=== PATIENT | male | born 1945 | race Caucasian/White ===

== ENCOUNTER 2019-05-03 12:45 | Emergency (ER) | payer MEDICARE, BC ==
[2019-05-03 13:34] VITALS: BP 162/72
--- NOTE | 2019-05-03 14:19 | EDM.PDOC ---
ED HPI GENERAL MEDICAL PROBLEM - General Chief Complaint: Bite:Animal, Insect Stated Complaint: TICK BITE Time Seen by Provider: 05/03/19 13:33 Source of Information: Reports: Patient History Limitations: Reports: No Limitations - History of Present Illness INITIAL COMMENTS - FREE TEXT/NARRATIVE: 73 yo may presents with fatigue, body aches and chills after a know tick bite. He is unsure how long the tick was attached but thinks it is for sure longer then 24 hours. He has had Lyme before and feels very similar - Related Data Allergies Allergy/AdvReac Type Severity Reaction Status Date / Time No Known Allergies Allergy Verified 05/03/19 13:53 Home Meds: Home Meds Calcium Carbonate/Vitamin D3 [Calcium 600 + Vit D 200] 1 cap PO DAILY 11/02/15 [ History] Levothyroxine [Synthroid] 50 mcg PO DAILY 11/02/15 [History] Magnesium Amino Acid Chelate [Magnesium] 100 mg PO DAILY 11/02/15 [History] Tamsulosin [Flomax] 1 cap PO DAILY 11/02/15 [History] Cyclobenzaprine HCl 05/03/19 [History] Doxazosin Mesylate [Cardura] 05/03/19 [History] Past Medical History Gastrointestinal History: Reports: None Genitourinary History: Reports: BPH Musculoskeletal History: Reports: Arthritis Endocrine/Metabolic History: Reports: Hypothyroidism - Past Surgical History GI Surgical History: Reports: Colonoscopy Musculoskeletal Surgical History: Reports: Other (See Below) Social & Family History - Tobacco Use Smoking Status *Q: Never Smoker ED ROS GENERAL - Review of Systems Review Of Systems: See Below Constitutional: Reports: Fever, Chills, Malaise, Fatigue HEENT: Denies: Rhinitis, Sinus Problem Respiratory: Denies: Shortness of Breath, Wheezing Cardiovascular: Denies: Chest Pain, Lightheadedness GI/Abdominal: Denies: Abdominal Pain Skin: Reports: Rash ED EXAM, ANIMAL BITE - Physical Exam Exam: See Below Exam Limited By: No Limitations General Appearance: Alert, WD/WN, No Apparent Distress Ears: Normal External Exam, Normal Canal, Hearing Grossly Normal Nose: Normal Inspection, Normal Mucosa, No Blood Throat/Mouth: Normal Inspection, Normal Lips, Normal Teeth, Normal Gums, Normal Oropharynx, Normal Voice, No Airway Compromise Head: Atraumatic, Normocephalic Neck: Supple, Non-Tender, Full Range of Motion. No: Lymphadenopathy (R), Lymphadenopathy (L) Respiratory/Chest: No Respiratory Distress, Lungs Clear, Normal Breath Sounds, No Accessory Muscle Use, Chest Non-Tender. No: Crackles, Rhonchi, Wheezing Cardiovascular: Regular Rate, Rhythm, No Murmur GI/Abdominal: Soft, Non-Tender Back Exam: Normal Inspection, Full Range of Motion. No: CVA Tenderness (R), CVA Tenderness (L) Neurological: Alert, Oriented Psychiatric: Normal Affect, Normal Mood Skin Exam: Rash (target lession upper back ) Course - Vital Signs Last Recorded V/S: Last Vital Signs Temp 34.9 C L 05/03/19 14:02 Pulse 67 05/03/19 14:02 Resp 16 05/03/19 14:02 BP 162/72 H 05/03/19 14:02 Pulse Ox 96 05/03/19 14:02 - Orders/Labs/Meds Orders: Active Orders 24 hr Category Date Time Status BABESIA MICROTI ANTIBODY PANEL Urgent Lab 05/03/19 14:41 Received COMPREHENSIVE METABOLIC PN,CMP [CHEM] Stat Lab 05/03/19 14:41 Received HUMAN GRANULOCYTIC ERICKA-HGE Urgent Lab 05/03/19 14:41 Received LYME (B. BURGDORFERI) PCR Urgent Lab 05/03/19 14:41 Received Labs: Laboratory Tests 05/03/19 Range/Units 14:41 WBC 6.3 (4.5-11.0) K/uL RBC 4.70 (4.30-5.90) M/uL Hgb 14.4 (12.0-15.0) g/dL Hct 43.4 (40.0-54.0) % MCV 92 (80-98) fL MCH 31 (27-31) pg MCHC 33 (32-36) % Plt Count 179 (150-400) K/uL Neut % (Auto) 60 (36-66) % Lymph % (Auto) 23 L (24-44) % Carroll % (Auto) 15 H (2-6) % Eos % (Auto) 2 (2-4) % Baso % (Auto) 1 (0-1) % Departure - Departure Time of Disposition: 15:03 Disposition: Home, Self-Care 01 Condition: Good Clinical Impression: At high risk for tick borne illness Tick bite of back Qualifiers: Encounter type: initial encounter Qualified Code(s): S30.860A - Insect bite ( nonvenomous) of lower back and pelvis, initial encounter; W57.XXXA - Bitten or stung by nonvenomous insect and other nonvenomous arthropods, initial encounter - Discharge Information *PRESCRIPTION DRUG MONITORING PROGRAM REVIEWED*: Not Applicable *COPY OF PRESCRIPTION DRUG MONITORING REPORT IN PATIENT MARY: Not Applicable Instructions: Tick Bite Information, Adult, Cyet-by-Bwpm Referrals: Yonatan Juárez MD [Primary Care Provider] - Forms: ED Department Discharge Additional Instructions: doxycycline 100 mg twice daily for 14 days I collected blood for tick panel this will be resulted mid next week increase fluid intake with goal of 1.5 liters per day Ibuprofen 400-600 mg every 6 hours or tylenol 1000 mg every 6 hours for body aches and fever - My Orders Last 24 Hours: My Active Orders 05/03/19 14:41 BABESIA MICROTI ANTIBODY PANEL Urgent COMPREHENSIVE METABOLIC PN,CMP [CHEM] Stat HUMAN GRANULOCYTIC ERICKA-HGE Urgent LYME (B. BURGDORFERI) PCR Urgent - Assessment/Plan Last 24 Hours: My Active Orders 05/03/19 14:41 BABESIA MICROTI ANTIBODY PANEL Urgent COMPREHENSIVE METABOLIC PN,CMP [CHEM] Stat HUMAN GRANULOCYTIC ERICKA-HGE Urgent LYME (B. BURGDORFERI) PCR Urgent
[2019-05-07 16:08] LABS: BABESIA MICROTI IGG <1:10 (Neg:<1:10); BABESIA MICROTI IGM <1:10 (Neg:<1:10)
== END 2019-05-03 15:59 | disposition home or self-care (01) ==
LOC: JP.ED 12:45
DX: S30.860A Insect bite (nonvenomous) of lower back and pelvis, initial encounter (principal); W57.XXXA Bitten or stung by nonvenomous insect and other nonvenomous arthropods, initial encounter; Z79.899 Other long term (current) drug therapy
CPT/HCPCS: 36415; 80053; 85025; 86666; 86753; 87476; 99283

== ENCOUNTER 2020-08-22 06:45 | Emergency (ER) | payer MEDICARE, BC ==
--- NOTE | 2020-08-22 07:00 | EDM.PDOC ---
ED HPI GENERAL MEDICAL PROBLEM - General Chief Complaint: Respiratory Problem Stated Complaint: DIFFICULTY BREATHING / SOB Time Seen by Provider: 08/22/20 07:00 Source of Information: Reports: Patient, Old Records, RN History Limitations: Reports: No Limitations - History of Present Illness INITIAL COMMENTS - FREE TEXT/NARRATIVE: 75 yo male presents with RODRIGUEZ and mild chest tightness since about 0300h today. No hx of the same. No cough or fever or calf pain. No personal hx of CAD, but does have a FHx. Has smoked in the remote past only. Took aspirin 243 mg before coming in today. Has no SOB at rest now. Complains of fatigue for about 6 mos. Has not shared this with his primary Dr. Juárez. Onset: Today, Sudden Onset Date: 08/22/20 Onset Time: 03:00 Duration: Hour(s):, Waxing/Waning Location: Reports: Chest Quality: Reports: Pressure Severity: Mild Improves with: Reports: None Worsens with: Reports: None Context: Reports: Other (See HPI) Associated Symptoms: Reports: Chest Pain, Shortness of Breath. Denies: Cough, Diaphoresis, Fever/Chills, Headaches, Nausea/Vomiting, Rash, Syncope Treatments ADJUNCT LECTURER: Reports: Aspirin chest pressure Pain Score (Numeric/FACES): 5 - Related Data Allergies Allergy/AdvReac Type Severity Reaction Status Date / Time No Known Allergies Allergy Verified 05/03/19 13:53 Home Meds: Home Meds Levothyroxine [Synthroid] 75 mcg PO DAILY 11/02/15 [History] Doxazosin Mesylate [Cardura] 1 tab PO BEDTIME 05/03/19 [History] Apixaban [Eliquis] 10 mg PO Q12H #88 tablet 08/22/20 [Rx] Past Medical History Gastrointestinal History: Reports: None Genitourinary History: Reports: BPH Musculoskeletal History: Reports: Arthritis Endocrine/Metabolic History: Reports: Hypothyroidism - Past Surgical History GI Surgical History: Reports: Colonoscopy Musculoskeletal Surgical History: Reports: Other (See Below) ED ROS GENERAL - Review of Systems Review Of Systems: See Below Constitutional: Reports: No Symptoms HEENT: Reports: No Symptoms Respiratory: Reports: Shortness of Breath. Denies: Wheezing, Pleuritic Chest Pain, Cough, Sputum Cardiovascular: Reports: Chest Pain Endocrine: Reports: No Symptoms GI/Abdominal: Reports: No Symptoms : Reports: No Symptoms Musculoskeletal: Reports: No Symptoms Skin: Reports: No Symptoms Neurological: Reports: No Symptoms Psychiatric: Reports: No Symptoms ED EXAM, GENERAL - Physical Exam Exam: See Below Exam Limited By: No Limitations General Appearance: Alert, WD/WN, No Apparent Distress, Obese Eye Exam: Bilateral Eye: Normal Inspection Ears: Normal External Exam, Normal Canal, Hearing Grossly Normal, Normal TMs Ear Exam: Bilateral Ear: Auricle Normal, Canal Normal, TM normal Nose: Normal Inspection, No Blood Throat/Mouth: Normal Inspection, Normal Lips, Normal Oropharynx, Normal Voice, No Airway Compromise Head: Atraumatic, Normocephalic Neck: Normal Inspection Respiratory/Chest: No Respiratory Distress, Lungs Clear, Normal Breath Sounds, No Accessory Muscle Use Cardiovascular: Regular Rate, Rhythm, No Edema GI/Abdominal: Normal Bowel Sounds, Soft, Non-Tender, No Distention Extremities: Normal Inspection, Normal Range of Motion, Non-Tender, No Pedal Edema. No: Pedal Edema, Curry's Sign, Leg Pain, Limited Range of Motion, Increased Warmth, Redness Neurological: Alert, Oriented, CN II-XII Intact, Normal Cognition, No Motor/Sensory Deficits Psychiatric: Normal Affect, Normal Mood Skin Exam: Warm, Dry, Intact, Normal Color, No Rash EKG INTERPRETATION EKG Date: 08/22/20 Time: 06:45 Rhythm: NSR Rate (Beats/Min): 72 Hobson: LAD-Left Hobson Deviation P-Wave: Present QRS: Normal ST-T: Normal QT: Normal Comparison: NA - No Prior EKG () Course - Vital Signs Text/Narrative:: Dr. Velazquez called @ 1013h Last Recorded V/S: Last Vital Signs Temp 35.8 C L 08/22/20 06:54 Pulse 59 L 08/22/20 09:41 Resp 18 08/22/20 09:41 BP 171/59 H 08/22/20 09:41 Pulse Ox 97 08/22/20 09:41 - Orders/Labs/Meds Orders: Active Orders 24 hr Category Date Time Status Cardiac Monitoring [RC] .As Directed Care 08/22/20 06:56 Active EKG Documentation Completion [RC] ASDIRECTED Care 08/22/20 06:56 Active Chest 2V [CR] Stat Exams 08/22/20 07:12 Taken CORONAVIRUS COVID-19, CECILIO Routine Lab 08/22/20 10:42 Ordered Nitroglycerin [Nitrostat] Med 08/22/20 07:11 Active 0.4 mg SL Q5M PRN Sodium Chloride 0.9% [Normal Saline] 1,000 ml Med 08/22/20 08:00 Active IV ASDIRECTED Sodium Chloride 0.9% [Saline Flush] Med 08/22/20 07:22 Active 10 ml FLUSH ASDIRECTED PRN Saline Lock Insert [OM.PC] Routine Oth 08/22/20 07:22 Ordered EKG 12 Lead [EK] Routine Ther 08/22/20 06:56 Ordered Medication Orders Sodium Chloride (Normal Saline) 1,000 mls @ 1,000 mls/hr IV ASDIRECTED MONI Last Admin: 08/22/20 08:24 Dose: 1,000 mls/hr Documented by: PREILOR Nitroglycerin (Nitrostat) 0.4 mg SL Q5M PRN PRN Reason: Chest Pain Last Admin: 08/22/20 07:32 Dose: 0.4 mg Documented by: Admin: 08/22/20 07:20 Dose: 0.4 mg Documented by: SAVANNAH Sodium Chloride (Saline Flush) 10 ml FLUSH ASDIRECTED PRN PRN Reason: Keep Vein Open Last Admin: 08/22/20 07:31 Dose: 10 ml Documented by: SAVANNAH Labs: Laboratory Tests 08/22/20 08/22/20 08/22/20 Range/Units 07:21 07:21 07:21 WBC 5.4 (4.5-11.0) K/uL RBC 4.53 (4.30-5.90) M/uL Hgb 13.9 (12.0-15.0) g/dL Hct 42.0 (40.0-54.0) % MCV 93 (80-98) fL MCH 31 (27-31) pg MCHC 33 (32-36) % Plt Count 180 (150-400) K/uL D-Dimer, Quantitative 765 H (0.0-400.0) ng/mL Sodium 141 (140-148) mmol/L Potassium 4.5 (3.6-5.2) mmol/L Chloride 107 (100-108) mmol/L Carbon Dioxide 25 (21-32) mmol/L Anion Gap 9.4 (5.0-14.0) mmol/L BUN 16 (7-18) mg/dL Creatinine 1.3 (0.8-1.3) mg/dL Est Cr Clr Drug Dosing 56.34 mL/min Estimated GFR (MDRD) 54 L (>60) Glucose 176 H (74-106) mg/dL Calcium 8.7 (8.5-10.1) mg/dL Troponin I < 0.017 (0.000-0.056) ng/mL TSH, Ultra Sensitive (0.358-3.740) uIU/mL 08/22/20 Range/Units 08:11 WBC (4.5-11.0) K/uL RBC (4.30-5.90) M/uL Hgb (12.0-15.0) g/dL Hct (40.0-54.0) % MCV (80-98) fL MCH (27-31) pg MCHC (32-36) % Plt Count (150-400) K/uL D-Dimer, Quantitative (0.0-400.0) ng/mL Sodium (140-148) mmol/L Potassium (3.6-5.2) mmol/L Chloride (100-108) mmol/L Carbon Dioxide (21-32) mmol/L Anion Gap (5.0-14.0) mmol/L BUN (7-18) mg/dL Creatinine (0.8-1.3) mg/dL Est Cr Clr Drug Dosing mL/min Estimated GFR (MDRD) (>60) Glucose (74-106) mg/dL Calcium (8.5-10.1) mg/dL Troponin I (0.000-0.056) ng/mL TSH, Ultra Sensitive 2.626 (0.358-3.740) uIU/mL Meds: Medications Generic Name Dose Route Start Last Admin Trade Name Freq PRN Reason Stop Dose Admin Sodium Chloride 1,000 mls @ 1,000 mls/hr 08/22/20 08:00 08/22/20 08:24 Normal Saline IV 1,000 mls/hr ASDIRECTED MONI Administration Nitroglycerin 0.4 mg 08/22/20 07:11 08/22/20 07:32 Nitrostat SL 0.4 mg Q5M PRN Administration Chest Pain Sodium Chloride 10 ml 08/22/20 07:22 08/22/20 07:31 Saline Flush FLUSH 10 ml ASDIRECTED PRN Administration Keep Vein Open Discontinued Medications Generic Name Dose Route Start Last Admin Trade Name Sung PRN Reason Stop Dose Admin Acetaminophen 1,000 mg 08/22/20 09:37 08/22/20 09:45 Tylenol Extra Strength PO 08/22/20 09:38 1,000 mg ONETIME ONE Administration Aspirin 81 mg 08/22/20 07:11 08/22/20 07:20 Aspirin PO 08/22/20 07:12 81 mg ONETIME ONE Administration Enoxaparin Sodium 110 mg 08/22/20 10:11 Lovenox SUBCUT 08/22/20 10:12 ONETIME ONE Sodium Chloride 1,000 mls @ 500 mls/hr 08/22/20 08:00 Normal Saline IV ASDIRECTED MONI Sodium Chloride 100 mls @ 4 mls/sec 08/22/20 09:11 08/22/20 09:24 Normal Saline IV 08/22/20 09:12 4 mls/sec ASDIRECTED STA Administration Iopamidol 100 ml 08/22/20 09:11 08/22/20 09:24 Isovue-370 (76%) IV 08/22/20 09:12 100 ml . DIRECTED STA Administration - Radiology Interpretation Free Text/Narrative:: CXR-neg CTA chest-small segmental PE's CT Results Date: 08/22/20 Departure - Departure Time of Disposition: 10:55 Disposition: Home, Self-Care 01 Condition: Fair Clinical Impression: Elevated blood sugar, Elevated d-dimer Pulmonary emboli Qualifiers: Pulmonary embolism type: multiple subsegmental (without acute cor pulmonale) Qualified Code(s): I26.94 - Multiple subsegmental pulmonary emboli without acute cor pulmonale Fatigue Qualifiers: Fatigue type: unspecified Qualified Code(s): R53.83 - Other fatigue - Discharge Information *PRESCRIPTION DRUG MONITORING PROGRAM REVIEWED*: No *COPY OF PRESCRIPTION DRUG MONITORING REPORT IN PATIENT MARY: No Prescriptions: Apixaban [Eliquis] 10 mg PO Q12H #88 tablet Referrals: Yonatan Juárez MD [Primary Care Provider] - Forms: ED Department Discharge Additional Instructions: Take Eliquis as directed. You will need to get additional prescriptions from your primary for more of this as you will need to be on it for a full 6 months. Take acetaminophen as needed for pain relief. I suggest you see your doctor by the end of this week to check on your Covid test results also. Return as needed. Your Eliquis prescription went to [facility]. You should start it by bedtime tonight. Sepsis Event Note (ED) - Focused Exam Vital Signs: Vital Signs Temp Pulse Resp BP BP Pulse Ox 08/22/20 09:41 59 L 18 171/59 H 97 08/22/20 09:00 60 15 139/71 95 08/22/20 08:05 57 L 16 139/71 97 08/22/20 07:35 69 16 136/69 95 08/22/20 07:32 136/69 08/22/20 07:20 156/74 H 08/22/20 06:54 35.8 C L 63 14 160/77 H 96 - My Orders Last 24 Hours: My Active Orders 08/22/20 06:56 Cardiac Monitoring [RC] .As Directed EKG Documentation Completion [RC] ASDIRECTED EKG 12 Lead [EK] Routine 08/22/20 07:11 Nitroglycerin [Nitrostat] 0.4 mg SL Q5M PRN 08/22/20 07:12 Chest 2V [CR] Stat 08/22/20 07:22 Sodium Chloride 0.9% [Saline Flush] 10 ml FLUSH ASDIRECTED PRN Saline Lock Insert [OM.PC] Routine 08/22/20 08:00 Sodium Chloride 0.9% [Normal Saline] 1,000 ml IV ASDIRECTED 08/22/20 10:42 CORONAVIRUS COVID-19, CECILIO Routine - Assessment/Plan Last 24 Hours: My Active Orders 08/22/20 06:56 Cardiac Monitoring [RC] .As Directed EKG Documentation Completion [RC] ASDIRECTED EKG 12 Lead [EK] Routine 08/22/20 07:11 Nitroglycerin [Nitrostat] 0.4 mg SL Q5M PRN 08/22/20 07:12 Chest 2V [CR] Stat 08/22/20 07:22 Sodium Chloride 0.9% [Saline Flush] 10 ml FLUSH ASDIRECTED PRN Saline Lock Insert [OM.PC] Routine 08/22/20 08:00 Sodium Chloride 0.9% [Normal Saline] 1,000 ml IV ASDIRECTED 08/22/20 10:42 CORONAVIRUS COVID-19, CECILIO Routine
[2020-08-22] MEDS ORDERED: Aspirin 81 MG Tab.Chew PO ONE (07:11)
[2020-08-22] MEDS: Nitroglycerin 0.4 MG Tab.SL SL PRN ×2 (07:20→07:32)
[2020-08-22] MEDS ORDERED: Sodium Chloride 0.9% 10 ML Syringe FLUSH PRN (07:22)
[2020-08-22] MEDS ORDERED: Sodium Chloride 0.9% 1,000 ML IV SCH ×2 (08:00)
[2020-08-22] MEDS ORDERED: Sodium Chloride 0.9% 100 ML IV STA (09:11)
[2020-08-22] MEDS ORDERED: Iopamidol 755 Mg/ML 100 ML Bottle IV STA (09:11)
[2020-08-22] MEDS ORDERED: Acetaminophen 500 MG Tab PO ONE (09:37)
[2020-08-22 09:42] VITALS: BP 171/59; PULSE 59
[2020-08-22] MEDS ORDERED: Enoxaparin 120 MG/0.8 ML Syringe SUBCUT ONE (10:11)
--- NOTE | 2020-08-22 10:16 | CRLCT ---
INDICATION: Short of breath and elevated D-dimer. TECHNIQUE: CT scan of the chest PE protocol. 100 cc of nonionic IV contrast was injected. Findings. Pulmonary arteries: Segmental filling defects. Right lower lobe branch image 66. Segmental branches in the left lower lobe image 71. No central large pulmonary filling defects. Heart mediastinum: The RV LV ratios approximately 0.9. There are a few tiny calcified plaques in the coronary arteries. No adenopathy. Lungs and pleura: Small nodule adjacent to a vessel branch in the right lower lobe 7 mm image 59. Minimal areas of linear atelectasis or scar. No effusions. Miscellaneous: Hiatal hernia. The liver has decreased attenuation. This could suggest fatty infiltration. Skeletal: Idiopathic skeletal hyperostosis. IMPRESSION: 1. Small segmental pulmonary emboli. 2. RV LV ratio would upper normal 0.9. 3. Questionable nodule in the right lower lobe consider follow-up in 12 months. 4. Critical results called to Dr. Zuñiga at 10:10 a.m. by telephone. Please note that all CT scans at this facility use dose modulation, iterative reconstruction, and/or weight-based dosing when appropriate to reduce radiation dose to as low as reasonably achievable. Dictated by Jan Crow MD @ Aug 22 2020 10:14AM Signed by Dr. Jan Crow @ Aug 22 2020 10:14AM
--- NOTE | 2020-08-23 09:52 | CR ---
CHEST: 2 view CLINICAL HISTORY:SOB COMPARISON:None FINDINGS: The heart size, pulmonary vascularity and hilar structures are normal. No infiltrate effusion or pneumothorax is seen. There are atherosclerotic changes in the aorta. IMPRESSION: No acute cardiopulmonary process.
== END 2020-08-22 11:21 | disposition home or self-care (01) ==
LOC: JP.ED 06:45
DX: I26.94 Multiple subsegmental thrombotic pulmonary emboli without acute cor pulmonale (principal); R73.9 Hyperglycemia, unspecified; E03.9 Hypothyroidism, unspecified; E66.9 Obesity, unspecified; Z68.31 Body mass index [BMI] 31.0-31.9, adult; Z79.899 Other long term (current) drug therapy; Z87.891 Personal history of nicotine dependence; Z20.828 Contact with and (suspected) exposure to other viral communicable diseases
CPT/HCPCS: 36415; 71046; 71275; 80048; 84443; 84484; 85027; 85379; 93005; 99285; A9270; J7030; Q9967; U0002